=== PATIENT | female | born 1990 | race Caucasian/White ===

== ENCOUNTER 2016-10-03 11:50 | Emergency (ER) | payer BC, OTHER ==
[~2016-10-03] VITALS: Ht 162.6 cm; Wt 53.8 kg
[~2016-10-03 11:50] MED LIST: PRLSR20 PO
[2016-10-03 11:57] VITALS: TEMP 36.4; Ht 162.6 cm; Wt 53.8 kg
[2016-10-03] MEDS ORDERED: CLON0.5T3 PO (12:06)
[2016-10-03] MEDS ORDERED: ESCI1TAB6 PO (12:06)
[2016-10-03] MEDS ORDERED: SODIUM CHLORIDE 0.9% 1000ML 1,000 ML IV STA (12:27)
[2016-10-03 12:39] LABS: BASO % 0.5 %; BASO ABS # 0.02 K/uL (0-0.2); COMPLETE YES; EOS % 0.2 %; HEMATOCRIT 37.6 % (37-47); IG% 0.2 %; LYMPH % 39.7 %; LYMPH ABS # 1.72 K/uL (1.2-3.4); MEAN CELL VOLUME 88.1 fL (80-100); MEAN CORPUSCULAR HEMOGLOBIN 31.9 pg (25-34); MEAN CORPUSCULAR HGB CONC 36.2 g/dl (32-36); MEAN PLATELET VOLUME 9.3 fL (7.4-10.4); MONO % 6.2 %; NEUT % 53.2 %; PLATELET COUNT 250 K/uL (130-400); RED BLOOD COUNT 4.27 M/uL (4.2-5.4); WHITE BLOOD COUNT 4.33 K/uL (4.8-10.8)
[2016-10-03 12:53] LABS: BUN/CREATININE RATIO 16.1 (10-20); CALCIUM 9.3 mg/dl (8.5-10.1); CREATININE 0.66 mg/dl (0.60-1.20); MAGNESIUM 2.1 mg/dl (1.8-2.4); POTASSIUM 3.3 mmol/L (3.5-5.1)
[2016-10-03 13:02] LABS: URINE APPEARANCE CLEAR (CLEAR); URINE BILIRUBIN NEG (NEG); URINE COLOR DK YELLOW; URINE EPITHELIAL CELL AUTO >30 /lpf (0-5); URINE NITRITE NEG (NEG); URINE PH 7.5 (4.5-7.5); URINE SPECIFIC GRAVITY 1.024 (1.000-1.030); UROBILINOGEN NEG (NEG); ZZUR CULT IF INDIC CLEAN CATCH YES
[2016-10-03 13:03] LABS: MANUAL MICROSCOPIC REQUIRED? NO; REVIEW REQ? NO
--- NOTE | 2016-10-03 13:05 | DIAGNOSTIC IMAGING REPORT ---
CHEST ONE VIEW PORTABLE CLINICAL HISTORY: Palpitations. COMPARISON STUDY: Chest radiograph March 02, 2016. FINDINGS: Lung volumes are normal. Lungs are clear. There is no pneumothorax or pleural effusion. Cardiac size is normal. Mediastinal contours are normal. There is no evidence of pulmonary edema. IMPRESSION: No acute cardiopulmonary findings. Electronically signed by: Emery Juárez M.D. 10/03/2016 1:04 PM Dictated Date/Time: 10/03/2016 1:03 PM
[2016-10-03 13:11] LABS: PREG INTERNAL NEGATIVE QC NEG CLEAR BACKGROUND; PREG INTERNAL POSITIVE QC POS CONTROL LINE
--- NOTE | 2016-10-03 13:23 | EMERGENCY ROOM VISIT NOTE ---
History Report prepared by Trudy: Shana Hung Under the Supervision of: Dr. Audra Sun M.D. First contact with patient: 12:09 Chief Complaint: CARDIAC ASSESSMENT Stated Complaint: CHEST DISCOMFORT HX: CARDIAC Nursing Triage Summary: Triage note: Pt reports hx of high heart rate. pt reports she sees cardiolgist from [facility]. pt reports when she rolled over from right side to left side she noticed her heart rate increasing. pt reports "i have had chest discomfort that comes and goes." History of Present Illness The patient is a 26 year old female who presents to the Emergency Room with complaints of worsening palpitations that started two weeks ago. The palpitations were worse than normal last night and she could not fall back to sleep. She states that her heart races when she rolls over at night and then throughout the rest of the day her heart feels like it is beating hard. She experiences chest pain after the episodes of palpitations. When she has the palpitations, she also experiences nausea and shortness of breath. The patient denies syncope. She adds that she has also been experiencing a headache in the back of her head that she describes as heaviness. The headache also started two weeks ago. She bought a pulse monitor and noticed that her heart rate would go up into the 120s intermittently. The patient denies drinking coffee, energy drinks, or caffeine. The patient has been experiencing intermittent chest pain for the last 2-3 months. She had a stress test and ultrasound of her heart done 2-3 months ago and both were unremarkable. She was given a Holter monitor to wear but she thought that she didn't need to use it because her other tests were unremarkable so she sent it back. The patient is on Lexapro because they originally thought that her symptoms were a result of anxiety. She denies recent dose increases for that. The patient also denies any chance of along with any urinary symptoms. She does not feel that she is dehydrated and has not taken any aspirin for the pain. Source of History: patient Onset: two weeks ago Position: chest Quality: other (palpitations) Timing: worsening Associated Symptoms: + SOB, + chest pain, + headache, + nausea, No urinary symptoms Note: no syncope Review of Systems See HPI for pertinent positives & negatives. A total of 10 systems reviewed and were otherwise negative. Past Medical & Surgical Surgical Problems: (1) Hx of section Family History Cancer Social History Smoking Status: Never Smoker Alcohol Use: none Drug Use: none Marital Status: Housing Status: lives with family Occupation Status: employed Current/Historical Medications Scheduled Escitalopram Oxalate (Lexapro), 5 MG PO DAILY Miscellaneous Medications Clonazepam (Klonopin), 0.5 MG PO Allergies Coded Allergies: No Known Allergies (Unverified , 10/03/16) Physical Exam Vital Signs Date Time Temp Pulse Resp B/P Pulse Ox O2 Delivery O2 Flow Rate FiO2 10/03/16 15:13 59 16 109/66 99 10/03/16 14:28 71 16 96/61 93 10/03/16 12:39 88 120/68 99 81 116/71 87 104/79 10/03/16 12:07 68 10/03/16 11:57 36.4 74 18 113/73 100 Room Air Physical Exam Vital signs reviewed. General: Well-appearing female, in no significant distress. HEENT: No scleral icterus, PERRLA, neck supple. Atraumatic. Cardiovascular: Regular rate and rhythm, no extra sounds. Pulmonary: Clear to auscultation bilaterally, normal work of breathing. Abdomen: Soft, nontender, nondistended, positive bowel sounds. Musculoskeletal: Atraumatic, no peripheral edema. Neurologic: Patient awake alert and oriented x 3, full strength in all 4 extremities. Cranial nerves 2 through 12 grossly intact. Skin: Warm, dry, no rash Medical Decision & Procedures ER Provider Diagnostic Interpretation: X-ray results as stated below per interpretation by me and the radiologist: CHEST ONE VIEW PORTABLE IMPRESSION: No acute cardiopulmonary findings. Electronically signed by: Emery Juárez M.D. 10/03/2016 1:04 PM Dictated Date/Time: 10/03/2016 1:03 PM Laboratory Results 10/03/16 12:21 Red Blood Count 4.27, Mean Corpuscular Volume 88.1, Mean Corpuscular Hemoglobin 31.9, Mean Corpuscular Hemoglobin Concent 36.2, Mean Platelet Volume 9.3, Neutrophils (%) (Auto) 53.2, Lymphocytes (%) (Auto) 39.7, Monocytes (%) (Auto) 6.2, Eosinophils (%) (Auto) 0.2, Basophils (%) (Auto) 0.5, Neutrophils # (Auto) 2.30, Lymphocytes # (Auto) 1.72, Monocytes # (Auto) 0.27, Eosinophils # (Auto) 0.01, Basophils # (Auto) 0.02 10/03/16 12:21 Test 10/03/16 12:21 10/03/16 12:36 10/03/16 12:37 White Blood Count 4.33 K/uL (4.8-10.8) Red Blood Count 4.27 M/uL (4.2-5.4) Hemoglobin 13.6 g/dL (12.0-16.0) Hematocrit 37.6 % (37-47) Mean Corpuscular Volume 88.1 fL (80-100) Mean Corpuscular Hemoglobin 31.9 pg (25-34) Mean Corpuscular Hemoglobin Concent 36.2 g/dl (32-36) Platelet Count 250 K/uL (130-400) Mean Platelet Volume 9.3 fL (7.4-10.4) Neutrophils (%) (Auto) 53.2 % Lymphocytes (%) (Auto) 39.7 % Monocytes (%) (Auto) 6.2 % Eosinophils (%) (Auto) 0.2 % Basophils (%) (Auto) 0.5 % Neutrophils # (Auto) 2.30 K/uL (1.4-6.5) Lymphocytes # (Auto) 1.72 K/uL (1.2-3.4) Monocytes # (Auto) 0.27 K/uL (0.11-0.59) Eosinophils # (Auto) 0.01 K/uL (0-0.5) Basophils # (Auto) 0.02 K/uL (0-0.2) RDW Standard Deviation 37.1 fL (36.4-46.3) RDW Coefficient of Variation 11.6 % (11.5-14.5) Immature Granulocyte % (Auto) 0.2 % Immature Granulocyte # (Auto) 0.01 K/uL (0.00-0.02) Anion Gap 12.0 mmol/L (3-11) Est Creatinine Clear Calc Drug Dose 109.7 ml/min Estimated GFR () 141.3 Estimated GFR (Non- 121.9 BUN/Creatinine Ratio 16.1 (10-20) Calcium Level 9.3 mg/dl (8.5-10.1) Magnesium Level 2.1 mg/dl (1.8-2.4) Total Bilirubin 0.6 mg/dl (0.2-1) Direct Bilirubin 0.1 mg/dl (0-0.2) Aspartate Amino Transf (AST/SGOT) 21 U/L (15-37) Alanine Aminotransferase (ALT/SGPT) 21 U/L (12-78) Alkaline Phosphatase 54 U/L (45-117) Total Creatine Kinase 98 U/L (26-192) Creatine Kinase MB 1.0 ng/ml (0.5-3.6) Creatine Kinase MB Ratio 1.0 (0-3.0) Total Protein 7.5 gm/dl (6.4-8.2) Albumin 4.1 gm/dl (3.4-5.0) Human Chorionic Gonadotropin, Qual NEG (NEG) Bedside D-Dimer 118 ng/mlFEU (0-450) Bedside Troponin I 0.000 ng/ml (0-0.045) Urine Color DK YELLOW Urine Appearance CLEAR (CLEAR) Urine pH 7.5 (4.5-7.5) Urine Specific [place] 1.024 (1.000-1.030) Urine Protein NEG (NEG) Urine Glucose (UA) NEG (NEG) Urine Ketones 3+ (NEG) Urine Occult Blood NEG (NEG) Urine Nitrite NEG (NEG) Urine Bilirubin NEG (NEG) Urine Urobilinogen NEG (NEG) Urine Leukocyte Esterase TRACE (NEG) Urine WBC (Auto) 5-10 /hpf (0-5) Urine RBC (Auto) 0-4 /hpf (0-4) Urine Hyaline Casts (Auto) 5-10 /lpf (0-5) Urine Epithelial Cells (Auto) >30 /lpf (0-5) Urine Bacteria (Auto) 1+ (NEG) Laboratory results per my review. Medications Administered Medications (Trade) Dose Ordered Sig/Beto Route Start Time Stop Time Status Last Admin Dose Admin Sodium Chloride (Nss 1000ml) 1,000 ml @ 999 mls/hr Q1H1M STAT IV 10/03/16 12:27 10/03/16 13:27 DC 10/03/16 12:27 999 MLS/HR ECG Indication: palpitations Rate (beats per minute): 68 Rhythm: normal sinus Findings: no acute ischemic change, no ectopy ED Course 1224: Past medical records reviewed. The patient was evaluated in room C5. A complete history and physical examination was performed. 1227: Ordered Sodium Chloride 1000 ml @ 999 mls/hr IV 1443: Upon reevaluation, the patient appeared to have improvement of her symptoms. I discussed findings with her. She verbalized agreement of the treatment plan. She was discharged home. Medical Decision The patient is a 26 year old female who presents to the Emergency Room with complaints of worsening palpitations that started two weeks ago. Differentials include acute coronary syndrome, pulmonary embolus, aortic dissection, musculoskeletal pain, pneumonia, pleural effusion, pneumothorax This patient was evaluated and appeared to be in no significant distress. IV access was obtained and laboratory work was drawn. EKG reveals no ectopy, no acute ischemia. Patient was hydrated with 1 L of normal saline solution. Urinalysis reveals 3+ ketones, no evidence of infection. Patient's laboratory work reveals a normal d-dimer and troponin. She was informed of the findings. We did discuss the possibility of the effects of dieting. The patient states she has "not been eating much." She was encouraged to add some carbohydrate to her diet and stay well-hydrated. A Holter monitor was ordered. The patient was discharged to cardiopulmonary lab for set up. 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 She will return to the ER for worsening of symptoms or any medical concerns. Impression Primary Impression: Heart palpitations Scribe Attestation The scribe's documentation has been prepared under my direction and personally reviewed by me in its entirety. I confirm that the note above accurately reflects all work, treatment, procedures, and medical decision making performed by me. Departure Information Dispostion Home / Self-Care Referrals No Doctor, Assigned (PCP) Forms IMPORTANT VISIT INFORMATION Patient Instructions My [facility] Additional Instructions Diagnosis: Heart palpitations Drink plenty of clear fluids. Increase the carbohydrate in your diet. Follow-up with your doctor this week for reevaluation. Go directly to cardiopulmonary lab for a Holter monitor and directions on use. Follow-up with your wire mesh gate assembler within the next 1-2 weeks for reevaluation and interpretation of the Holter monitor. Return to the ER for worsening of symptoms or any medical concerns.
[2016-10-03 15:13] VITALS: BP 109/66; PULSE 59; O2SAT 99
== END 2016-10-03 15:14 | disposition home or self-care (01) ==
LOC: C.EDB 11:55 → C.EDC 15:14
DX: R00.2 Palpitations (principal)

== ENCOUNTER → 2016-11-12 | Outpatient (CLI) | payer OTHER ==
[~2016-11-12] MED LIST changes: +CLON0.5T3 PO; +ESCI1TAB6 PO; -PRLSR20 PO
[2016-11-12 11:51] LABS: PROLACTIN 10.24 ng/mL
== END | disposition home or self-care (01) ==
LOC: C.LAB1850 10:25
PROVIDERS: ATTEND Obstetrics & Gynecology
DX: N92.6 Irregular menstruation, unspecified (principal)

== ENCOUNTER → 2016-11-12 | Outpatient (CLI) | payer OTHER | END | disposition home or self-care (01) | LOC: C.LABSPEC 13:18 | PROVIDERS: ATTEND Obstetrics & Gynecology | DX: N89.8 Other specified noninflammatory disorders of vagina (principal) ==

== ENCOUNTER 2017-06-22 23:34 | Emergency (ER) | payer OTHER ==
[~2017-06-22] VITALS: Ht 165.1 cm; Wt 62.7 kg
[2017-06-22 23:41] VITALS: TEMP 36.5; Ht 165.1 cm; Wt 62.7 kg
[2017-06-23] MEDS ORDERED: KETOROLAC TROMETHAMINE 30 MG/ML VIAL IV STA (00:01)
[2017-06-23 00:15] LABS: BASO % 0.3 %; BASO ABS # 0.02 K/uL (0-0.2); COMPLETE YES; EOS % 1.1 %; HEMATOCRIT 43.6 % (37-47); IG% 0.3 %; LYMPH % 41.4 %; MEAN CELL VOLUME 91.6 fL (80-100); MEAN CORPUSCULAR HGB CONC 32.8 g/dl (32-36); MEAN PLATELET VOLUME 9.2 fL (7.4-10.4); MONO % 8.1 %; NEUT % 48.8 %; PLATELET COUNT 303 K/uL (130-400); RED BLOOD COUNT 4.76 M/uL (4.2-5.4); WHITE BLOOD COUNT 7.25 K/uL (4.8-10.8)
[2017-06-23 00:39] LABS: BUN/CREATININE RATIO 12.4 (10-20); CALCIUM 9.5 mg/dl (8.5-10.1); CREATININE 0.71 mg/dl (0.60-1.20)
[2017-06-23 00:41] LABS: PREG INTERNAL NEGATIVE QC NEG CLEAR BACKGROUND; PREG INTERNAL POSITIVE QC POS CONTROL LINE
[2017-06-23 01:16] VITALS: BP 113/63; PULSE 66; O2SAT 98
--- NOTE | 2017-06-23 01:29 | EMERGENCY ROOM VISIT NOTE ---
History First contact with patient: 23:46 Chief Complaint: HEAD PAIN Stated Complaint: HEAD PRESSURE/PAIN History of Present Illness The patient is a 27 year old female who presents to the Emergency Room with complaints of headache 1 week. The patient states that she has had a headache on the right side of her head for the past one week. She states the pain has been constant. She states it feels like a pressure/knot. She reports this feels better when she lies on the right side of her head. The pain came on gradually after waking up one morning one week ago. She reports associated nausea, but no other associated symptoms. She rates the discomfort a 7/10. She denies vomiting, blurred vision, slurred speech, confusion, numbness or weakness. She denies any history of migraine or other headache disorders. Review of Systems A complete 10 point review of systems was reviewed with the patient with pertinent positives and negatives as per history of present illness. All else were negative. Past Medical/Surgical History Surgical Problems: (1) Hx of section Family History Cancer Social History Smoking Status: Never Smoker Alcohol Use: none Drug Use: none Marital Status: Housing Status: lives with family Occupation Status: employed Current/Historical Medications No Active Prescriptions or Reported Meds Physical Exam Vital Signs Date Time Temp Pulse Resp B/P (MAP) Pulse Ox O2 Delivery O2 Flow Rate FiO2 06/23/17 01:16 66 16 113/63 98 Room Air 06/22/17 23:41 36.5 77 18 119/73 98 Physical Exam VITALS: Vitals are noted on the nurse's note and reviewed by myself. Vital signs stable. GENERAL: This is a 27-year-old female, in no acute distress, nondiaphoretic, well-developed well-nourished. SKIN: The skin was without rashes. HEAD: Normocephalic atraumatic. EARS: External auditory canals clear, tympanic membranes pearly lópez without erythema or effusion bilaterally. EYES: Pupils equal round and reactive to light and accommodation. Conjunctivae without injection, sclerae without icterus. Extraocular movements intact. MOUTH: Mucous membranes moist. Tonsils are not enlarged. Pharynx without erythema or exudate. NECK: Supple without nuchal rigidity. No lymphadenopathy. HEART: Regular rate and rhythm without murmurs gallops or rubs. LUNGS: Clear to auscultation bilaterally without wheezes, rales or rhonchi. MUSCULOSKELETAL: Full range of motion. Strength 5/5 throughout. NEURO: Patient was alert and oriented to person place and time. Normal sensation to light and sharp touch. No focal neurological deficits. Medical Decision & Procedures ER Provider Diagnostic Interpretation: CT HEAD: No acute intracranial abnormality identified. Posterior fossa cyst incidentally noted. Radiologist: Jose L Miranda MD Laboratory Results 06/23/17 00:05 Red Blood Count 4.76, Mean Corpuscular Volume 91.6, Mean Corpuscular Hemoglobin 30.0, Mean Corpuscular Hemoglobin Concent 32.8, Mean Platelet Volume 9.2, Neutrophils (%) (Auto) 48.8, Lymphocytes (%) (Auto) 41.4, Monocytes (%) (Auto) 8.1, Eosinophils (%) (Auto) 1.1, Basophils (%) (Auto) 0.3, Neutrophils # (Auto) 3.54, Lymphocytes # (Auto) 3.00, Monocytes # (Auto) 0.59, Eosinophils # (Auto) 0.08, Basophils # (Auto) 0.02 06/23/17 00:05 Test 06/23/17 00:05 White Blood Count 7.25 K/uL (4.8-10.8) Red Blood Count 4.76 M/uL (4.2-5.4) Hemoglobin 14.3 g/dL (12.0-16.0) Hematocrit 43.6 % (37-47) Mean Corpuscular Volume 91.6 fL (80-100) Mean Corpuscular Hemoglobin 30.0 pg (25-34) Mean Corpuscular Hemoglobin Concent 32.8 g/dl (32-36) Platelet Count 303 K/uL (130-400) Mean Platelet Volume 9.2 fL (7.4-10.4) Neutrophils (%) (Auto) 48.8 % Lymphocytes (%) (Auto) 41.4 % Monocytes (%) (Auto) 8.1 % Eosinophils (%) (Auto) 1.1 % Basophils (%) (Auto) 0.3 % Neutrophils # (Auto) 3.54 K/uL (1.4-6.5) Lymphocytes # (Auto) 3.00 K/uL (1.2-3.4) Monocytes # (Auto) 0.59 K/uL (0.11-0.59) Eosinophils # (Auto) 0.08 K/uL (0-0.5) Basophils # (Auto) 0.02 K/uL (0-0.2) RDW Standard Deviation 39.3 fL (36.4-46.3) RDW Coefficient of Variation 11.7 % (11.5-14.5) Immature Granulocyte % (Auto) 0.3 % Immature Granulocyte # (Auto) 0.02 K/uL (0.00-0.02) Anion Gap 8.0 mmol/L (3-11) Est Creatinine Clear Calc Drug Dose 107.1 ml/min Estimated GFR () 135.3 Estimated GFR (Non- 116.7 BUN/Creatinine Ratio 12.4 (10-20) Calcium Level 9.5 mg/dl (8.5-10.1) Human Chorionic Gonadotropin, Qual NEG (NEG) Chemistry Specimen Hemolysis Medical Decision The differential diagnosis includes acute intracranial bleed, meningitis, encephalitis, mass or mass effect, sinusitis, infection, tumor, headache, temporal arteritis and carbon monoxide exposure, and migraine. The patient is a 27-year-old female who presents today complaining of a right- sided headache which has been present for one week. No concerning abnormalities on exam. No neurological deficits. CT of the head was performed and showed no acute findings. Labs were unremarkable. Patient's symptoms seem to be secondary to a tension headache and she does admit to increased stress recently as well as a significant amount of anxiety regarding this headache. Patient was reassured and instructed to use [id number] medications for treatment. She was advised to follow-up with her primary care provider this week for further evaluation. Based on the patient's presentation and work up, I feel the patient is stable for outpatient treatment. The patient was educated to return to the emergency department for any worsening of their current condition or new/concerning symptoms. She will follow up with her PCP. Medication Reconcilliation Current Medication List: was personally reviewed by me Blood Pressure Screening Patient's blood pressure: Normal blood pressure Impression Primary Impression: Right-sided headache Departure Information Dispostion Home / Self-Care Condition GOOD Prescriptions No Active Prescriptions or Reported Meds Referrals Jenna Cho D.O. (PCP) Patient Instructions My [facility] Additional Instructions You have been treated in the Emergency Department for a Headache. For pain control, you can use the following [id number] medicines (if >12 yo): - Regular strength (325mg/tab) Tylenol (acetaminophen) 2 tabs every 4-6 hours as needed. Do not exceed 12 tablets in a 24 hour period. Avoid taking more than 4 grams (4000 mg) of Tylenol per day. This includes any other sources of acetaminophen you may take on a regular basis. - Regular strength (200 mg/tab) Advil (ibuprofen) 1-2 tabs every 4-6 hours as needed. Do not exceed a dose of 3200 mg per day. You should relax in a quiet, dark place for the rest of the day. Avoid any possible triggers including: cigarette smoke, caffeine, nicotine, chocolate, wine, beer, loud noises or music, or bright lights. You should schedule a follow-up appointment in 2-3 days with your Primary Care Provider or established Neurologist for further evaluation and treatment of your Headache. Return to the Emergency Department if your current symptoms worsen despite treatment course outlined above, or if you develop any of the following symptoms : intractable pain despite aforementioned treatment course, visual disturbances , loss of vision, unilateral weakness or facial drooping, slurring of speech, loss of coordination, or loss of consciousness.
--- NOTE | 2017-06-23 07:14 | DIAGNOSTIC IMAGING REPORT ---
HEAD CT NONCONTRAST CT DOSE: 614.27 mGy.cm HISTORY: right sided headache TECHNIQUE: Multiaxial CT images of the head were performed without the use of intravenous contrast. Automated exposure control was utilized for this study. A dose lowering technique was utilized adhering to the principles of ALARA. Comparison: None. Findings: The paranasal sinuses and mastoid air cells are clear. The calvarium and skull base are intact. The ventricles and sulci are within normal limits. There is no mass, hematoma, midline shift, or acute infarct. Prominence of the left posterior extra-axial space within the posterior fossa measuring up to 1.7 cm. This likely represents an arachnoid cyst. Impression: No acute intracranial abnormality. Electronically signed by: Kris Taveras M.D. 06/23/2017 7:12 AM Dictated Date/Time: 06/23/2017 7:11 AM
== END 2017-06-23 01:32 | disposition home or self-care (01) ==
LOC: C.EDB 23:34
DX: R51 Headache (principal); Z80.9 Family history of malignant neoplasm, unspecified; F41.9 Anxiety disorder, unspecified

== ENCOUNTER 2017-12-10 16:34 | Emergency (ER) | payer OTHER ==
[~2017-12-10] VITALS: Ht 162.6 cm; Wt 62.2 kg
[2017-12-10 16:40] VITALS: TEMP 36.4; Ht 162.6 cm; Wt 62.2 kg
--- NOTE | 2017-12-10 18:04 | DIAGNOSTIC IMAGING REPORT ---
HEAD WITHOUT CONTRAST (CT) CT DOSE: 614.27 mGy.cm HISTORY: Mental status change L lower jaw and neck numbness; ? CVA TECHNIQUE: Multiaxial CT images of the head were performed without the use of intravenous contrast. A dose lowering technique was utilized adhering to the principles of ALARA. Comparison: 06/23/2017 Findings: The paranasal sinuses and mastoid air cells are clear. The calvarium and skull base are intact. The ventricles and sulci are within normal limits. There is no mass, hematoma, midline shift, or acute infarct. Impression: No acute intracranial abnormality. The above report was generated using voice recognition software. It may contain grammatical, syntax or spelling errors. Electronically signed by: Herberth Neumann M.D. 12/10/2017 6:03 PM Dictated Date/Time: 12/10/2017 6:02 PM
[2017-12-10] MEDS ORDERED: PRED20TA PO (18:45)
[2017-12-10 18:58] VITALS: BP 106/63; PULSE 68; O2SAT 98
--- NOTE | 2017-12-11 22:13 | EMERGENCY ROOM VISIT NOTE ---
ED Visit Note First contact with patient: 17:00 Chief Complaint: Left-sided face and neck numbness. History of Present Illness: Ms. Puri is a 27-year-old white female who ambulates into the ED accompanied by her complaining of a numbness sensation over the left lateral joint line and the lateral aspect of the left side of the neck. Patient reports she has been feeling well over the last 2 days and then acutely at 11:00 today, 5.5 hours ago, she developed numbness over the lateral aspect of the lower jaw, the lower lip, the lateral aspect of the tongue and the lateral aspect of the neck. Since that time her symptoms have been constant. She has not identified any aggravating or alleviating factors related these symptoms. She did not take any medications for these symptoms prior to arrival at the hospital. Associated with these symptoms she reports she has a metallic on her tongue. She has been able to eat and drink after the onset of her symptoms. She denies any previous similar episodes, fevers, chills, sweats, skin eruptions , skin color changes, headaches, dizziness, lightheadedness, hearing changes, visual changes, difficulty speaking, difficulty swallowing, recent dental trauma , upper respiratory tract symptoms, neck/back pain, decreased appetite, nausea/ vomiting, extremity weakness/numbness/tingling. Review of Systems: As noted above in history of present illness. 8 body systems were reviewed and found to be negative as noted above. Past Medical History: Status post section. Current Medications: Patient denies. Allergies to Medications: Patient denies. Social History: Patient is currently employed; she lives with her and feels safe in her home environment; she denies tobacco and alcohol use. Physical Examination: Vital Signs: Date Time Temp Pulse Resp B/P (MAP) Pulse Ox O2 Delivery O2 Flow Rate FiO2 12/10/17 18:58 68 18 106/63 98 Room Air Manual 12/10/17 17:57 95 13 122/78 100 Room Air 12/10/17 16:40 36.4 94 16 133/82 98 Room Air GENERAL: 27-year-old female in mild distress due to symptoms, nontoxic-appearing , afebrile and hemodynamically stable. Patient is anxious. NEUROLOGICAL: Awake, alert and oriented to person, place and time. Answering questions appropriately and following commands. Normal gait. Good hand eye coordination. PERRLA. EOMI intact without nystagmus. No facial droop. Able to wrinkle forehead muscles. Able to tightly close eyelids. No tongue deviation. Decreased sensation to the left lateral aspect of the tongue, upper lip and lower portion of the body of the mandible and lateral neck. Able to swallow without difficulty. Normal/clear voice. No muscle weakness throughout the face. SKIN: Warm, dry and pink. No soft tissue eruptions or trauma noted. HEENT: Atraumatic and normocephalic. No facial tenderness or swelling. There was mild erythema over the left side of the face during my initial evaluation that subsequently resolved. Sclera white and conjunctiva pink without drainage. No drainage from naris. Oral cavity moist and pink. Airway is patent. No intraoral trauma or signs of infection. Pharynx is nonerythematous or edematous. No lymphadenopathy. Trachea midline. No jugular venous distention. No JVD. No carotid bruits. BACK: No tenderness over the bony cervical and thoracic spine. Full range of motion of the cervical spine. THORAX: Lungs sounds are clear to auscultation and equal bilaterally with symmetrical chest wall. ED Course: Patient is assessed as noted above. Patient's medication list was reviewed. Head CT: Was reviewed by myself and read by the radiologist showing no acute intracranial abnormalities. Patient's case was reviewed with Dr. Bourne; we agreed on diagnostic approach, treatment, disposition and plan. Patient was educated about today's findings and instructed on her treatment plan ; she verbalized understanding and agreement with this plan. Clinical Impression: Left-sided facial and neck numbness. Decision-Making: Initially my differential diagnosis I considered CVA, TIA, Murray 's palsy and other causes. Disposition: Patient discharged home in stable condition; prior to departure she was reassessed and subjectively reported she was feeling the same. Plan: Patient was prescribed prednisone 40 mg once a day for the next 5 days. Patient was encouraged to continue her other medications. Patient was encouraged to follow-up with her PCP for recheck in 2-4 days. Patient was encouraged to return the ED for worsening symptoms, left-sided facial weakness or any new/concerning symptoms.
== END 2017-12-10 19:01 | disposition home or self-care (01) ==
LOC: C.EDB 16:35 → C.EDD 19:01
DX: R20.0 Anesthesia of skin (principal)

== ENCOUNTER 2019-09-23 10:23 | Observation (INO) ==
[2019-09-23] MEDS ORDERED: ACETAMINOPHEN 325 MG TAB PO PRN (11:15)
[2019-09-23 11:50] LABS: Appearance Urine Clear (Clear); Bacteria Urine Automated 1+ (Negative); Bilirubin Urine Negative (Negative); Blood Urine Negative (Negative); Color Urine Yellow; Epithelial Cell Urine Auto >30 /lpf (0-5); Glucose Urine UA Negative (Negative); Ketones Urine 1+ (Negative); Leukocyte Esterase Urine 1+ (Negative); Nitrite Urine Negative (Negative); RBC Urine Automated 0-4 /hpf (0-4); Specific Gravity Urine 1.018 (1.000-1.030); Urobilinogen Urine Negative (Negative); pH Urine 7.5 (4.5-7.5)
[2019-09-23 11:52] LABS: Protein Urine Negative (Negative); Sulfosalicylic Acid Urine Negative (Negative)
[2019-09-23] MEDS ORDERED: LACTATED RINGER'S 2,000 ML IV ONE (12:21)
--- NOTE | 2019-09-23 13:42 | History & Physical Report ---
Date of Service September 23, 2019 Assessment & Plan (1) Supervision of normal intrauterine in multigravida: [id number] at 34.0 weeks GA. Patient presents for regular contractions. 1. Fetus:Cat 1/ Reactive 2. Labor: Regular contractions without cervical change at present. Recommended BMZ with discussion of risks and benefits including risk of respiratory morbidity and NICU admission by not receiving BMZ. Patient declining BMZ at this time. Will continue to monitor on L&D 3. Vitals: WNL 4. GBS: Unknown (2) Need for rhogam due to Rh negative mother: (3) contractions: History of Present Illness Primary Care Provider: Jenna Cho, [id number] at 34.0 weeks GA. Patient presents for regular contractions. Reports that ctx started after an episode of diarrhea around 5am today. Have not changed significantly since onset and occurring q3-6 minutes. Patient also reporting GI upset. nausea and vomited while in triage with PO intake. Denying and VB, LOF. Good FM. complicated by prior LTCS desiring /TOLAC. Patient has prior 37 week delivery for labor. Allergies Allergy/AdvReac Type Severity Reaction Status Date / Time No Known Allergies Allergy Verified 09/19/19 11:08 Home Medications Home Medications Medication Instructions Recorded Confirmed Type PNV cmb#95-ferrous fumarate-FA 0 tab PO DAILY 06/21/19 09/23/19 History [ Multivitamins] ferrous sulfate [Iron (ferrous 325 mg PO DAILY 09/23/19 09/23/19 History sulfate)] Patient History Medical History (Updated 09/23/19 @ 13:34 by Prakash Ni MD) screening for malformation using ultrasonics (Resolved) Endometriosis Generalized weakness (Acute) Need for rhogam due to Rh negative mother No pertinent past medical history Ovarian cyst Supervision of normal intrauterine in multigravida Syncope (Acute) Surgical History History of delivery, antepartum Hx of section (Resolved) Social History Preferred Language: [place]i Communication Ability: Effective Respite Coordinator Required: No Beliefs That Will Affect Care: None marital status: Current Living Situation: Spouse Other Information That Helps Us Care for You: No Feels Safe at Home: Yes Safety Concerns: Feels Safe At This Time Smoking Status: Never smoker Hx Alcohol Use: No Hx Substance Use: No Physical Exam Gastrointestinal (Abdomen): Inspection/Auscultation: abdomen normal to inspection; abdomen not distended and no abdominal edema Percussion/Palpation: abdomen soft; abdomen nontender, no guarding and abdomen not rigid Genitourinary: OB Exam Abdomen: + vertex OB Exam Monitor Tracing: + external FHT monitor used, + external uterine monitor used, + category I and + normal FHT variability; no early decelerations present, no late decelerations present and no variable decelerations SVE: 1/T/H > 1/T/H > 1/T/H Results & Data Vital Signs (Past 12 Hours) Vital Signs Temp Pulse Resp BP 09/23/19 12:50 36.7 C 109 H 20 122/64 09/23/19 10:41 36.7 C 113 H 20 133/73 09/23/19 10:33 113 H 133/73 09/23/19 10:31 36.7 C 20
[2019-09-23] MEDS: LACTATED RINGER'S 1,000 ML IV SCH ×2 (15:36→23:11)
[2019-09-24] MEDS: LACTATED RINGER'S 1,000 ML IV SCH (06:54)
--- NOTE | 2019-09-24 08:28 | Obstetrical Progress Note ---
Date of Service September 24, 2019 Assessment & Plan (1) Supervision of normal intrauterine in multigravida: [id number] at 34.0 weeks GA. Patient presents for regular contractions. Contractions improved as noted per HPI. No cervical change. Patient has had S/S of viral gastritis which is likely the underlining cause the contractions and maternal tachycardia 1. Fetus:Cat 1/ Reactive 2. Labor: Regular contractions without cervical change at admission. rare irregular contractions overnight. No cervical change noted. Recommended BMZ with discussion of risks and benefits including risk of respiratory morbidity and NICU admission by not receiving BMZ. Patient declining BMZ . Stable for discharge pending normal LE duplex 3. Vitals: WNL 4. GBS: Unknown 5. LE pain: LE duplex scan ordered (2) Need for rhogam due to Rh negative mother: (3) contractions: Subjective 29yo at 34.1 weeks. Patient presented with regular contractions. Patient have been monitored since 11am yesterday and has noted no cervical change. Contractions have become mild, irregular and infrequent since yesterday evening. She is denying LOF, VB. Good FM. Patient is reporting LE discomfort and tingling. Reporting local reproducible nonpleuritic tenderness at the rib edge but denying and chest tightness, SOB or other chest discomfort. Otherwise doing well today. PAtient had EKG yesterday for maternal tachycardia that showed sinus tach. Tachycardia improved this am Physical Exam Gastrointestinal (Abdomen): Inspection/Auscultation: abdomen normal to inspection; abdomen not distended and no abdominal edema Percussion/Palpation: abdomen soft; abdomen nontender, no guarding and abdomen not rigid Genitourinary: OB Exam Abdomen: + vertex Manual OB Exam: + cervical dilation 1 cm, + cervical effacement (thick) and + station high OB Exam Monitor Tracing: + external FHT monitor used, + external uterine monitor used, + category I and + normal FHT variability; no early decelerations present, no late decelerations present and no variable decelerations Reactive NST Results & Data Vital Signs (Past 12 Hours) Vital Signs Temp Pulse Resp BP Pulse Ox 09/24/19 08:12 106 H 97 09/24/19 08:07 106 H 97 09/24/19 08:02 99 H 96 09/24/19 07:57 102 H 98 09/24/19 07:52 106 H 97 09/24/19 07:47 116 H 98 09/24/19 07:42 132 H 98 09/24/19 07:37 115 H 97 09/24/19 07:32 116 H 96 09/24/19 07:23 113 H 96 09/24/19 07:18 103 H 96 09/24/19 07:13 99 H 97 09/24/19 07:08 113 H 97 09/24/19 07:03 110 H 97 09/24/19 06:58 117 H 98 09/24/19 06:56 36.6 C 121 H 18 103/54 L 09/24/19 06:53 124 H 94 09/24/19 06:52 113 H 94 09/24/19 06:48 109 H 95 09/24/19 06:47 108 H 94 09/24/19 06:43 111 H 95 09/24/19 06:40 109 H 94 09/24/19 06:38 109 H 94 09/24/19 06:35 106 H 94 09/24/19 06:33 108 H 95 09/24/19 06:28 108 H 95 09/24/19 06:25 116 H 94 09/24/19 06:23 109 H 95 09/24/19 06:18 112 H 95 09/24/19 06:13 113 H 95 09/24/19 06:12 126 H 93 09/24/19 06:08 112 H 95 09/24/19 06:05 110 H 94 09/24/19 06:03 112 H 96 09/24/19 05:58 107 H 92 09/24/19 05:53 108 H 92 09/24/19 05:48 110 H 94 09/24/19 05:43 107 H 94 09/24/19 05:38 113 H 94 09/24/19 05:33 116 H 96 09/24/19 05:28 116 H 97 09/24/19 05:24 114 H 94 09/24/19 05:23 125 H 97 09/24/19 05:19 130 H 94 09/24/19 05:18 128 H 96 09/24/19 04:56 122 H 96 09/24/19 04:51 119 H 96 09/24/19 04:46 129 H 96 09/24/19 04:41 122 H 97 09/24/19 04:36 130 H 96 09/24/19 04:35 36.9 C 18 09/24/19 04:34 136 H 132/69 09/24/19 04:31 126 H 97 09/24/19 04:26 131 H 96 09/24/19 04:21 131 H 96 09/24/19 04:17 131 H 94 09/24/19 04:16 140 H 94 09/24/19 04:08 114 H 94 09/24/19 04:07 111 H 94 09/24/19 04:03 111 H 95 09/24/19 04:02 106 H 94 09/24/19 03:58 110 H 95 09/24/19 03:56 115 H 94 09/24/19 03:53 109 H 95 09/24/19 03:51 109 H 94 09/24/19 03:48 113 H 95 09/24/19 03:45 113 H 94 09/24/19 03:43 104 H 95 09/24/19 03:38 110 H 95 09/24/19 03:37 111 H 94 09/24/19 03:32 128 H 97 09/24/19 03:27 116 H 96 09/24/19 03:22 116 H 97 09/24/19 03:17 116 H 97 09/24/19 03:12 121 H 98 09/24/19 03:11 36.3 C L 18 09/24/19 03:09 117 H 130/67 09/24/19 03:07 129 H 96 09/24/19 03:00 118 H 95 09/24/19 02:55 115 H 96 09/24/19 02:50 110 H 94 09/24/19 02:47 112 H 94 09/24/19 02:45 109 H 94 09/24/19 02:40 111 H 93 09/24/19 02:39 116 H 93 09/24/19 02:35 107 H 96 09/24/19 02:30 106 H 95 09/24/19 02:28 106 H 94 09/24/19 02:25 110 H 94 09/24/19 02:21 114 H 91 09/24/19 02:20 109 H 95 09/24/19 02:15 108 H 95 09/24/19 02:13 116 H 91 09/24/19 02:10 113 H 96 09/24/19 02:07 106 H 94 09/24/19 02:05 112 H 96 09/24/19 02:02 108 H 94 09/24/19 02:00 104 H 95 09/24/19 01:55 102 H 94 09/24/19 01:50 104 H 95 09/24/19 01:46 104 H 94 09/24/19 01:45 107 H 94 09/24/19 01:41 128 H 94 09/24/19 01:40 105 H 93 09/24/19 01:35 104 H 93 09/24/19 01:30 102 H 16 93 09/24/19 01:28 100 H 94 09/24/19 01:25 101 H 93 09/24/19 01:20 100 H 93 09/24/19 01:15 100 H 93 09/24/19 01:10 97 H 94 09/24/19 01:08 104 H 94 09/24/19 01:05 114 H 97 09/24/19 01:02 99 H 94 09/24/19 01:00 96 H 95 09/24/19 00:56 95 H 94 09/24/19 00:55 96 H 95 09/24/19 00:51 114 H 91 09/24/19 00:50 110 H 96 09/24/19 00:45 106 H 97 09/24/19 00:40 115 H 96 09/24/19 00:29 113 H 93 09/24/19 00:27 102 H 94 09/24/19 00:22 105 H 93 09/24/19 00:17 110 H 94 09/24/19 00:12 102 H 93 09/24/19 00:10 103 H 94 09/24/19 00:07 101 H 93 09/24/19 00:02 97 H 94 09/23/19 23:57 100 H 93 09/23/19 23:52 97 H 94 09/23/19 23:47 94 H 93 09/23/19 23:42 98 H 93 09/23/19 23:37 92 H 94 09/23/19 23:33 99 H 94 09/23/19 23:32 113 H 96 09/23/19 23:28 101 H 94 09/23/19 23:27 101 H 95 09/23/19 23:22 101 H 95 09/23/19 23:19 36.6 C 100 H 18 94 09/23/19 23:17 106 H 94 09/23/19 23:14 109 H 94 09/23/19 23:12 108 H 96 09/23/19 23:10 113 H 93/55 L 09/23/19 23:09 108 H 90 09/23/19 23:07 115 H 96 09/23/19 23:02 119 H 95 09/23/19 22:53 113 H 95 09/23/19 22:51 104 H 93 09/23/19 22:48 111 H 97 09/23/19 22:43 126 H 96 09/23/19 22:42 109 H 94 09/23/19 22:38 107 H 96 09/23/19 22:33 108 H 96 09/23/19 22:28 107 H 96 09/23/19 22:23 114 H 97 09/23/19 22:18 117 H 96 09/23/19 22:13 118 H 96 09/23/19 22:08 112 H 96 09/23/19 22:03 123 H 95 09/23/19 22:00 112 H 94 09/23/19 21:58 126 H 95 09/23/19 21:47 149 H 94 09/23/19 21:42 124 H 95 09/23/19 21:37 140 H 97 09/23/19 21:32 140 H 96 09/23/19 21:27 130 H 97 09/23/19 21:23 125 H 114/59 L 09/23/19 21:18 137 H 97 09/23/19 21:15 126 H 94 09/23/19 21:13 140 H 96 09/23/19 21:10 123 H 94 09/23/19 21:08 127 H 95 09/23/19 21:03 128 H 97 09/23/19 20:58 127 H 96 09/23/19 20:53 137 H 97 09/23/19 20:45 37.3 C 18 09/23/19 20:37 120 H 97 09/23/19 20:32 113 H 96 PG Care Time/CCT Total # of Minutes Spent Total Time Spent with Patient: Total time spent is greater than 50% in coordination of care (as documented) at patient's floor/unit and/or counseling patient:
--- NOTE | 2019-09-24 10:42 | Ultrasound Report ---
US venous doppler LE BI HISTORY: Pain. Edema. Calf pain COMPARISON STUDY: None. FINDINGS: There is normal compressibility, flow, and augmentation within the bilateral lower extremit y deep venous systems. IMPRESSION: No DVT within the right or left lower extremity. ACT 112: Negative or not required by law. The above report was generated using voice recognition software. It may contain grammatical, syntax or spelling errors. Electronically signed by: Herberth Neumann M.D. 09/24/2019 10:40 AM
--- NOTE | 2019-09-26 09:42 | Discharge Summary ---
HOSPITAL COURSE: The patient is a 29-year-old G2, P1-0-0-1 admitted at 34 weeks gestational age for regular contractions. At initial evaluation, the patient was noted to be becka every 2-3 minutes which she reported as painful. The patient was evaluated for several hours and noted to have continued regular contractions every 2-3 minutes without cervical change; however, due to the regular contractions which she was experiencing, I recommend the patient stay for admission for observation which she was agreeable to. The patient was evaluated on several occasions and noted no cervical change. She was given IV fluids as she was not tolerating p.o. secondary to nausea with vomiting and the patient is also experiencing diarrhea. On the first day of observation, the patient was noted to have a slow spacing in the contractions and then have spacing out to only rare irregular contractions overnight. The patient was reevaluated the following morning and noted to still have no cervical change. She was offered steroids at the time of admission for observation secondary to the regular contractions which she was experiencing. The patient declined steroids despite being counseled on 3 occasions with the recommendation that she have them secondary to the contractions. The patient was stable for discharge on the and was discharged in stable condition. She was reporting some calf tenderness prior to discharge and underwent a duplex lower extremity ultrasound, which was unremarkable. The patient was given both written and verbal discharge instructions and stressed that she should come back if regular contractions were to recur. The patient was agreeable to plan. Otherwise, the patient will follow up in clinic.
== END 2019-09-24 11:15 | disposition home or self-care (01) ==
LOC: OPB 10:23 → 4S1 10:23

== ENCOUNTER 2019-10-10 18:39 | Observation (INO) ==
[2019-10-10] MEDS ORDERED: BETAMETH SOD PHOS/ACETATE IA 6 MG/ML IM STA (22:19)
--- NOTE | 2019-10-10 22:24 | History & Physical Report ---
Date of Service October 10, 2019 Assessment & Plan (1) contractions: Cervix exam unchanged over 2 exams, 2 hours apart. However, I am concerned that she is still becka, lives over an hour away from the hospital, and has a prior hysterotomy scar on her uterus. I recommended to her that we keep her overnight for monitoring. If these contractions increase, will need to recheck cervix. Otherwise, plan to check again in the morning and determine whether she needs to stay at that point. I collected GBS swab tonight, will obtain CBC/blood bank hold. IV fluids overnight. I discussed steroids with patient - reviewed ACOG recommendations to give steroids up until 37w to improve lung maturity. Answered questions, discussed that I recommend that she get steroids. She and FOB will think about this. If contractions increase, will need to start PCN for GBS unknown prophylaxis. History of Present Illness Chief Complaint: contractions Primary Care Provider: Jenna Cho, DO 29yo @ 36 11/25 presented to L&D with contractions - was feeling tightening in her abdomen every so often, and feeling more regular pains in her low back. + movement. No vaginal bleeding or leaking of fluid. complicated by h/o low transverse section - desires . Rh negative. She spent the night at L&D a few weeks ago for a similar scenario. She had declined steroids for lung maturity at that time, concerned that it may cause problems for the baby. 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 Beliefs That Will Affect Care: None marital status: Current Living Situation: Spouse Other Information That Helps Us Care for You: No Feels Safe at Home: Yes Safety Concerns: Feels Safe At This Time Smoking Status: Never smoker Hx Alcohol Use: No Hx Substance Use: No Review of Systems All systems reviewed & are unremarkable except as noted in HPI & below Physical Exam Constitutional: WD/WN, vitals as above Respiratory: normal respiratory effort, lungs clear to auscultation no respiratory distress Cardiovascular: Rate/Rhythm: regular rate and regular rhythm Gastrointestinal (Abdomen): Inspection/Auscultation: abdomen normal to inspection Percussion/Palpation: abdomen soft; abdomen nontender Gravid. No s/s chorio or abruption. Skin: no rashes, warm and dry Psychiatric: A+Ox3, euthymic affect Results & Data Vital Signs (Past 12 Hours) Vital Signs Temp Pulse Resp BP 10/10/19 19:06 36.7 C 18 10/10/19 18:50 105 H 141/76 H 10/10/19 18:46 36.7 C 18 Monitoring External Monitor Cat 1 Tocodynamometer Q2-4 min
[2019-10-10 22:51] LABS: Basophils # (auto) 0.02 K/uL (0-0.2); Basophils % (auto) 0.2 %; Eosinophils # (auto) 0.05 K/uL (0-0.5); Eosinophils % (auto) 0.5 %; Hematocrit (blood only) 33.4 % (37-47); Hemoglobin 11.1 g/dL (12.0-16.0); Lymphocytes # (auto) 1.96 K/uL (1.2-3.4); Lymphocytes % (auto) 19.7 %; Mean Corpuscular Hemoglobin 30.6 pg (25-34); Mean Corpuscular Hgb Conc 33.2 g/dL (32-36); Monocytes # (auto) 0.88 K/uL (0.11-0.59); Monocytes % (auto) 8.8 %; Neutrophils # (auto) 6.76 K/uL (1.4-6.5); Neutrophils % (auto) 67.8 %; Platelet Count 239 K/uL (130-400); RDW Coefficient of Variation 15.3 % (11.5-14.5); RDW Standard Deviation 51.5 fL (36.4-46.3); Red Blood Count 3.63 M/uL (4.2-5.4); White Blood Count 9.97 K/uL (4.8-10.8)
[2019-10-10] MEDS: LACTATED RINGER'S 1,000 ML IV PRN (23:42)
[2019-10-11] MEDS: LACTATED RINGER'S 1,000 ML IV PRN (04:17)
[2019-10-11 04:18] VITALS: TEMP 98.2
[2019-10-11 07:14] VITALS: BP 109/67; PULSE 95
--- NOTE | 2019-10-11 07:28 | Obstetrical Progress Note ---
Date of Service October 11, 2019 Subjective Patient slept somewhat overnight. She has had off-and-on contractions overnight. At this time, is feeling irregular ctx, not becka on toco, one palpable contraction. FHT Cat 1. Cervix exam unchanged, /-2. Scant vaginal spotting. No rupture of membranes. I discussed with patient that she is not in active labor at this time, given that she has not made cervical change overnight. However, given her irregular runs of contractions, I am concerned that she could move into active labor - and if she feels like contractions increase at all, if she develops heavy bleeding, or water breaks, she is to return immediately. She declined recommendation for steroids to improve lung development. Discharge to home, followup at scheduled visit in office tomorrow. Results & Data Vital Signs (Past 12 Hours) Vital Signs Temp Pulse Resp BP 10/11/19 07:13 95 H 109/67 10/11/19 04:18 36.8 C 18 10/11/19 04:16 118 H 117/71 10/11/19 02:28 114 H 103/59 L 10/11/19 02:20 36.9 C 18 10/10/19 22:42 36.9 C 94 H 18 121/67 PG Care Time/CCT Total # of Minutes Spent Total Time Spent with Patient: Total time spent is greater than 50% in coordination of care (as documented) at patient's floor/unit and/or counseling patient:
[2019-10-11] MEDS ORDERED: BETAMETH SOD PHOS/ACETATE IA 6 MG/ML IM SCH (22:30)
--- NOTE | 2019-10-18 23:54 | Discharge Summary ---
Date of Service October 18, 2019 Admission HPI Per Admitting Provider 29yo @ 36 11/25 presented to L&D with contractions - was feeling tightening in her abdomen every so often, and feeling more regular pains in her low back. + movement. No vaginal bleeding or leaking of fluid. complicated by h/o low transverse section - desires . Rh negative. She spent the night at L&D a few weeks ago for a similar scenario. She had declined steroids for lung maturity at that time, concerned that it may cause problems for the baby. Admission Exam (Per Admitting) Constitutional WD/WN, vitals as above Respiratory normal respiratory effort, lungs clear to auscultation no respiratory distress Cardiovascular Rate/Rhythm: regular rate and regular rhythm Gastrointestinal (Abdomen) Inspection/Auscultation: abdomen normal to inspection Percussion/Palpation: abdomen soft; abdomen nontender Skin no rashes, warm and dry Psychiatric A+Ox3, euthymic affect Hospital Course (1) contractions: Monitored overnight for labor, not in labor, discharged home. Cervix exam unchanged over 2 exams, 2 hours apart. However, I am concerned that she is still becka, lives over an hour away from the hospital, and has a prior hysterotomy scar on her uterus. I recommended to her that we keep her overnight for monitoring. If these contractions increase, will need to recheck cervix. Otherwise, plan to check again in the morning and determine whether she needs to stay at that point. I collected GBS swab tonight, will obtain CBC/blood bank hold. IV fluids overnight. I discussed steroids with patient - reviewed ACOG recommendations to give steroids up until 37w to improve lung maturity. Answered questions, discussed that I recommend that she get steroids. She and FOB will think about this. If contractions increase, will need to start PCN for GBS unknown prophylaxis. (2) Desires (vaginal after ) trial: Coding Level of Care Code None Diagnoses contractions O47.9 Desires (vaginal after ) trial O34.219
== END 2019-10-11 07:36 | disposition home or self-care (01) ==
LOC: OPB 18:39 → 4S1 18:39
DX: O60.02 Preterm labor without delivery, second trimester

== ENCOUNTER 2019-10-14 01:56 | Inpatient (IN) ==
[2019-10-14] MEDS ORDERED: OXYTOCIN 30 UNITS/500 ML BAG IV PRN ×3 (08:55→16:50)
[2019-10-14] MEDS ORDERED: BUTORPHANOL TARTRATE 1 MG/ML VIAL IV PRN (08:58)
--- NOTE | 2019-10-14 08:58 | History & Physical Report ---
Date of Service October 14, 2019 Assessment & Plan (1) Normal labor: 29yo F here at 37.0 weeks in active labor. - Trial for vaginal ; pt is a . - 4-5/100/-1 at this time. - Stadol given, pt will consider epidural. History of Present Illness Primary Care Provider: Jenna Cho DO [place] is a 29 yo F with prior history of C section for non-reassuring heart tones, was counseled on the risks and benefits of repeat C section and patient elects to attempt ; dating parameters 37.0 weeks by US; here overnight for painful contractions and now is 4/100/-1 with contractions every 3-4 minutes; Rh negative and received Rhogam at 28 weeks. Attended OB appointments with [facility]. Confirms movement, no vaginal bleeding or leakage of fluid. Undecided at this time regarding epidural. Labs (Serology 04/21/2019; CBC 10/14/2019): Blood type: O- Antibody screen: negative Hgb: 11.6 Hct: 36.0% WBC: 14.65 Plt: 255 Rubella status: immune VDLR/RPR: nonreactive Gonorrhea: negative Chlamydia: negative HIV: negative GBS: negative HbSAg: negative Glucose tolerance test x2: negative Allergies Allergy/AdvReac Type Severity Reaction Status Date / Time No Known Allergies Allergy Verified 10/10/19 19:05 Home Medications Home Medications Medication Instructions Recorded Confirmed Type PNV cmb#95-ferrous fumarate-FA 0 tab PO DAILY 06/21/19 10/10/19 History [ Multivitamins] ferrous sulfate [Iron (ferrous 325 mg PO DAILY 09/23/19 10/10/19 History sulfate)] Patient History Medical History screening for malformation using ultrasonics (Resolved) Endometriosis Generalized weakness (Acute) Need for rhogam due to Rh negative mother No pertinent past medical history Ovarian cyst Supervision of normal intrauterine in multigravida Syncope (Acute) Surgical History History of delivery, antepartum Hx of section (Resolved) Family History Other No pertinent family history Social History Preferred Language: Dutch Communication Ability: Effective Logistics 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 Required: No Beliefs That Will Affect Care: None marital status: Current Living Situation: Spouse Current Living Situation Comment: Pt lives in [place] with her and her daughter Other Information That Helps Us Care for You: No Feels Safe at Home: Yes Safety Concerns: Feels Safe At This Time Smoking Status: Never smoker Do You Dip or Chew Tobacco: No ; Second Hand Exposure: No ; Tobacco Cessation Education Requested by Patient: No Hx Alcohol Use: No Hx Substance Use: No Review of Systems Constitutional: denies fever, chills, sweats, headache Respiratory: denies SOB, difficulty breathing Cardiac: denies CP, chest palpitations, chest pressure Breast: denies breast pain : denies dysuria Physical Exam Physical Exam: General: patient is alert and oriented, in NAD Cardiac: +S1/S2, no murmurs rubs or gallops Respiratory: lungs CTA b/l, anteriorly and posteriorly, no wheezes rales or rhonchi, no increased work of breathing, symmetric chest rise, no respiratory distress Abdomen: gravid, fundal height is 37cm, + FHTs. Baby is presenting vertex. + palpable contractions q3-4 minutes; EFW 7-8 lbs Uterus: uterine fundus firm Lower Extremities: no LE edema or swelling, no deep calf pain, Aamir's sign negative b/l Genitourinary: Manual OB Exam: + cervical dilation 4 cm, + cervical effacement 100% and + station -1 OB Exam Monitor Tracing: + external FHT monitor used, + external uterine monitor used, + category I and + normal FHT variability Results & Data Vital Signs (Past 12 Hours) Vital Signs Temp Pulse Resp BP 10/14/19 07:13 82 113/65 10/14/19 05:30 85 123/63 10/14/19 02:24 87 119/66 10/14/19 02:17 36.6 C 18 Laboratory Results Laboratory Results - last 24 hr 10/14/19 10/14/19 09:19 09:19 WBC 14.65 H RBC 3.90 L Hgb 11.6 L Hct 36.0 L MCV 92.3 MCH 29.7 MCHC 32.2 RDW Std Deviation 51.5 H RDW Coeff of Pascale 15.5 H Plt Count 255 MPV 8.9 Blood Type Pending Antibody Screen Pending Medications Administered Current Medications Butorphanol Tartrate (Stadol) 1 mg IV Q2HWA PRN PRN Reason: Pain Stop: 11/13/19 08:57 Lactated Ringer's (Lr) 1,000 mls @ 125 mls/hr IV .Q8H PRN; Protocol PRN Reason: L&D Protocol Stop: 10/16/19 08:54 Oxytocin (Pitocin) 30 units in 500 mls @ 333.333 mls/hr IV .Q1H30M PRN; Protocol PRN Reason: Bleeding Control Stop: 11/13/19 08:54 Monitoring External Monitor HR 140s with food variability. Tocodynamometer contractions q3-4 minutes. Supervising Physician Co-Signing Physician Notes Resident Physician Supervision Note: I was present with Dr. Sanders during the history and exam. I discussed the case with the resident and agree with the findings and plan as documented in the note. Any exceptions or clarifications are listed here: candidate, desires CLAUDY Documented By: Ed Dawson Jr, MD, FACOG Coding Level of Care Code None Diagnoses Normal labor O80; Z37.9 Resident Activity Tracking Resident Involvement: Resident Care Provided Care Provided: OB Delivery
[2019-10-14 09:33] LABS: Hemoglobin 11.6 g/dL (12.0-16.0); Mean Corpuscular Hemoglobin 29.7 pg (25-34); Mean Corpuscular Volume 92.3 fL (80-100); Mean Platelet Volume 8.9 fL (7.4-10.4); Platelet Count 255 K/uL (130-400); RDW Coefficient of Variation 15.5 % (11.5-14.5); RDW Standard Deviation 51.5 fL (36.4-46.3); White Blood Count 14.65 K/uL (4.8-10.8)
[2019-10-14 09:35] LABS: Mean Corpuscular Hgb Conc 32.2 g/dL (32-36)
[2019-10-14] MEDS: LACTATED RINGER'S 1,000 ML IV PRN ×3 (09:57→15:56)
[2019-10-14] MEDS ORDERED: fentaNYL citrate 100 MCG/2 ML VIAL ONE (10:48)
[2019-10-14] MEDS ORDERED: ePHEDrine sulfate 50 MG/ML AMP ONE (10:48)
[2019-10-14] MEDS ORDERED: fentaNYL 2MCG/ML ROPIV 1.25MG/ML 100 ML BAG EPI ONE (10:49)
[2019-10-14] MEDS ORDERED: BUPIVACAINE 0.25% 30 ML VIAL ONE (10:49)
[2019-10-14] MEDS ORDERED: NALBUPHINE HCL INJ 10 MG/ML AMP IV PRN (10:52)
[2019-10-14] MEDS ORDERED: ONDANSETRON INJ 2 MG/ML 2 ML VIAL IV PRN ×2 (10:52→16:59)
[2019-10-14] MEDS ORDERED: ePHEDrine sulfate 50 MG/ML AMP IV PRN (10:52)
[2019-10-14] MEDS ORDERED: NALOXONE HCL 0.4 MG/1 ML VIAL/CARP IV PRN (10:52)
[2019-10-14] MEDS ORDERED: NALOXONE HCL 1 MG in SODIUM CHLORIDE 0.9% 1000ML 1,000 ML IV PRN (10:52)
[2019-10-14] MEDS ORDERED: fentaNYL 2MCG/ML ROPIV 1.25MG/ML 100 ML BAG EPI PRN (10:52)
[2019-10-14] MEDS ORDERED: DiphenhydrAMINE HCL 50 MG/ML VIAL IV PRN (10:52)
--- NOTE | 2019-10-14 10:57 | Anesthesiology Consultation ---
Date of Service October 14, 2019 Assessment & Plan Chart Review Chart Review: Patient NOT seen in Pre Admission Testing and Acceptable Risk for Labor Epidural Consults Requested none ASA ASA2 Proposed Anesthesia Anesthesia Type: Labor Epidural and CSE Risk / Benefits Reviewed With: PT / POA / Parent / Guardian, Accepts Plan and Informed Consent Obtained History Height/Weight Height: 5 ft 4 in Weight: 79.832 kg Allergies Allergy/AdvReac Type Severity Reaction Status Date / Time No Known Allergies Allergy Verified 10/10/19 19:05 Medications Home Medications Medication Instructions Recorded Confirmed Last Taken PNV cmb#[id number]-ferrous fumarate-FA 0 tab PO DAILY 06/21/19 10/10/19 10/10/19 08:00 [ Multivitamins] ferrous sulfate [Iron (ferrous 325 mg PO DAILY 09/23/19 10/10/19 10/10/19 08:00 sulfate)] Active Medications Generic Name Dose Route Start Last Admin Trade Name Freq PRN Reason Stop Dose Admin Lactated Ringer's 1,000 mls @ 125 mls/hr 10/14/19 08:55 10/14/19 09:58 Lr IV 10/16/19 08:54 999 mls/hr .Q8H PRN Infusion L&D Protocol Protocol NPO Date Last Intake of Fluids: 10/14/19 Time Last Intake of Fluids: 09:00 Date Last Intake of Solids: 10/13/19 Time Last Intake of Solids: 21:00 Past Medical History Medical History screening for malformation using ultrasonics (Resolved) Endometriosis Generalized weakness (Acute) Need for rhogam due to Rh negative mother No pertinent past medical history Ovarian cyst Supervision of normal intrauterine in multigravida Syncope (Acute) Exercise / Class Metabolic Activity II 4-5 Yardwork/Stairs/Walk up hill Past Family History Family History Other No pertinent family history Past Surgical History Surgical History History of delivery, antepartum Hx of section (Resolved) Past Anesthesia History No Hx of Anesthesia Complications and No Family Hx of Anesthesia Complications History of PONV No Hx of PONV and No Hx of Motion Sickness Social History Smoking Status: Never smoker Do You Dip or Chew Tobacco: No Hx Alcohol Use: No Hx Substance Use: No substance use type: does not use Review of Systems no chest pain or sob Physical Exam Vital Signs Last Vital Signs Temp 36.6 C 10/14/19 02:17 Pulse 98 H 10/14/19 10:56 Resp 18 10/14/19 02:17 BP 113/65 10/14/19 07:13 Pulse Ox 100 10/14/19 10:56 ENMT Mouth: no TMJ abnormality Thyromental Distance: > or= 3.5 Finger Breadths Mallampati Class: II Neck normal visual inspection Respiratory normal respiratory effort Auscultation: lungs clear to auscultation bilaterally Cardiovascular Rate/Rhythm: regular rate and regular rhythm Musculoskeletal Spine: normal cervical ROM Neurologic moves all extremities Psychiatric Orientation: alert and oriented x 3 Testing Laboratory Results 10/14/19 09:19 Blood Type O Negative 10/14/19 09:19 Antibody Screen NEGATIVE 10/14/19 09:19
--- NOTE | 2019-10-14 13:07 | Labor Progress Brief Note ---
Date of Service October 14, 2019 Subjective Reason For Note: Routine Evaluation comfortable now with epidural. candidate. aware i am taking over care. Assessment & Plan (1) Desires (vaginal after ) trial: comfortable, may need pitocin due to poor ctx pattern. will reposition as well due to variables. slight cervical change, can see how srom augments labor pattern. pt aware I am taking over care. she asks about use of pitocin with and explained that can be used for augmentation of labor. aware she will be closely observed. Physical Exam Constitutional: WD/WN, vitals as above Psychiatric: A+Ox3, euthymic affect Genitourinary: Manual OB Exam: + cervical dilation (5-6), + cervical effacement 80%, + station -2 and + amniotic fluid (SROM clear) clear OB Exam Monitor Tracing: + external FHT monitor used (150 mod variability, variable decels), + external uterine monitor used (q2), + category II and + normal FHT variability Results & Data Vital Signs (Past 12 Hours) Vital Signs Temp Pulse Resp BP Pulse Ox 10/14/19 12:54 117 H 129/73 10/14/19 12:51 130 H 98 10/14/19 12:46 113 H 98 10/14/19 12:41 113 H 98 10/14/19 12:39 114 H 131/74 10/14/19 12:36 115 H 98 10/14/19 12:31 113 H 97 10/14/19 12:26 106 H 97 10/14/19 12:24 112 H 129/77 10/14/19 12:21 113 H 97 10/14/19 12:16 107 H 98 10/14/19 12:11 102 H 97 10/14/19 12:09 108 H 117/72 10/14/19 12:08 98.2 F 20 10/14/19 12:07 103 H 94 10/14/19 12:06 102 H 98 10/14/19 12:01 98 H 98 10/14/19 11:56 103 H 99 10/14/19 11:54 89 113/61 10/14/19 11:51 101 H 99 10/14/19 11:46 101 H 99 10/14/19 11:41 102 H 99 10/14/19 11:38 106 H 123/59 L 10/14/19 11:36 112 H 98 10/14/19 11:33 104 H 121/57 L 10/14/19 11:31 112 H 98 10/14/19 11:29 109 H 136/63 10/14/19 11:26 105 H 99 10/14/19 11:22 105 H 115/60 10/14/19 11:21 105 H 98 10/14/19 11:20 106 H 118/63 10/14/19 11:18 100 H 130/60 10/14/19 11:17 110 H 153/75 H 10/14/19 11:16 108 H 100 10/14/19 11:12 111 H 137/61 10/14/19 11:11 115 H 100 10/14/19 11:06 132 H 100 10/14/19 11:03 115 H 138/85 10/14/19 10:56 98 H 100 10/14/19 07:13 82 113/65 10/14/19 05:30 85 123/63 10/14/19 02:24 87 119/66 10/14/19 02:17 97.9 F 18 Coding Level of Care Code None Diagnoses Desires (vaginal after ) trial O34.219
[2019-10-14] MEDS ORDERED: Nursing to Pharmacy Communication ONE (15:08)
[2019-10-14] MEDS ORDERED: HYDROCORTISONE ACETATE 25 MG SUPP PR PRN (16:50)
[2019-10-14] MEDS ORDERED: SUPERCREAM 0.870% 15 GM JAR EXT PRN (16:50)
[2019-10-14] MEDS ORDERED: DIPHTHERIA/TETANUS/PERTUSSIS 0.5 ML SYR/VIAL IM ONE (16:50)
[2019-10-14] MEDS ORDERED: OXYCODONE/ACETAMINOPHEN 5mg/325mg TAB PO PRN (16:50)
[2019-10-14] MEDS ORDERED: BENZOCAINE 20% AER SPR 82.5 GM CAN EXT PRN (16:50)
--- NOTE | 2019-10-14 16:50 | Delivery Summary ---
Vaginal Delivery Summary Date of Service October 14, 2019 The patient dilated to complete and pushed to deliver a viable female Apg ars 8 and 9 via over vaginal laceration with right labial laceration. Mouth and nose bulb suctioned at perineum. Shoulders and body delivered with ease and remainder of rapidly thereafter as patient continued with maternal expulsive efforts. was vigorous and crying at . Cord clamped at 30 seconds of life and infant to maternal abdomen where the cord was then doubly clamped and cut. Placenta delivered spontaneously and intact, three-vessel cord. Hemostasis achieved with dilute pitocin and uterine massage and drainage of the bladder for approximately 200 cc under sterile conditions. Lacerations repaired with 3-0 vicryl in usual fashion after 1% local lidocaine anesthesia. Cervix and sulci intact. Cord blood and cord gases. EBL 300 cc. Mother and baby stable in recovery.
[2019-10-14 16:55] LABS: Base Excess Cord Venous Blood -3.8 mEq/L (-7.7-1.9); Cord Venous Blood HCO3 21 mmol/L (18.4-26.8); Cord Venous Blood PCO2 40 mmHg (30.4-57.2); Cord Venous Blood PO2 26 mmHg (14.1-43.3); Cord Venous Blood pH 7.35 (7.20-7.44)
[2019-10-14 16:59] LABS: O2 Saturation Cord Venous Bld < 60.0 % (<68)
[2019-10-14] MEDS ORDERED: OXYTOCIN 20 UNITS in LACTATED RINGER'S 1,000 ML IV SCH (17:00)
--- NOTE | 2019-10-14 18:01 | Anesthesia Procedure Note ---
Date of Service October 14, 2019 Anesthesia Post Epidural Note Vital Signs Vital Signs: Temp Pulse Resp BP Pulse Ox 36.7 C 127 H 20 102/58 L 97 10/14/19 17:01 10/14/19 17:47 10/14/19 17:47 10/14/19 17:47 10/14/19 16:26 Pain Intensity Bilateral Back: Pain Intensity: 2 Notes Mental Status: alert / awake / arousable and participated in evaluation Patient Amnestic to Procedure: Yes Nausea / Vomiting: adequately controlled Pain: adequately controlled Airway Patency, RR, SpO2: stable & adequate BP & HR: stable & adequate Hydration State: stable & adequate Neuraxial Anesthesia: was administered and sensory block is resolving Anesthetic Complications: no major complications apparent and Pt Satisfied with anesthetic care Epidural: Removed without complications and With tip intact
[2019-10-14] MEDS: IBUPROFEN 600 MG TAB PO PRN ×2 (18:30→23:33)
[2019-10-14] MEDS ORDERED: DOCUSATE SODIUM 100 MG CAP ONE (19:52)
[2019-10-14] MEDS: DOCUSATE SODIUM 100 MG CAP PO SCH (19:55)
[2019-10-14] MEDS: ACETAMINOPHEN 325 MG TAB PO PRN (20:42)
[2019-10-15] MEDS: IBUPROFEN 600 MG TAB PO PRN ×5 (04:36→20:07)
[2019-10-15] MEDS: ACETAMINOPHEN 325 MG TAB PO PRN (04:49)
--- NOTE | 2019-10-15 07:01 | Obstetrical Progress Note ---
Date of Service <Dinahgraham Babcockangella - Last Filed: 10/15/19 07:01> October 15, 2019 Assessment & Plan <Dinah Acevedo - Last Filed: 10/15/19 07:01> (1) Encounter for care and examination after delivery: 29 yo F PPD #1 following delivery at 37.0weeks, doing well and without complaints this morning. - PPD #1 - Feels well, ambulating well, voiding well. - Will continue routine care. - Following d/c will have f/u in 6 weeks. - Blood type O-, Rubella immune. Subjective <Dinah BabcockDO angella - Last Filed: 10/15/19 07:01> Almita is a 29 yo female ; PPD # 1 following successful at 37.0weeks; doing well this AM; no abdominal cramping/pain; voiding well; tolerating meals overnight, able to ambulate some within the room. Some persistent spotting this morning but improved from yesterday. Is breast feeding and reports her baby has a good latch. Review of Systems Constitutional: denies fever, chills, sweats, headache Respiratory: denies SOB, difficulty breathing Cardiac: denies CP, chest palpitations, chest pressure Breast: denies breast pain : denies dysuria Physical Exam <Dinah Curtis, DO - Last Filed: 10/15/19 07:01> General: patient is alert and oriented, in NAD Cardiac: +S1/S2, no murmurs rubs or gallops Respiratory: lungs CTA b/l, anteriorly and posteriorly, no wheezes rales or rhonchi, no increased work of breathing, symmetric chest rise, no respiratory distress Abdomen: soft, NT, +bowel sounds Uterus: uterine fundus firm, palpable below the level of the umbilicus Lower Extremities: no LE edema or swelling, no deep calf pain, Aamir's sign negative b/l Results & Data <Dinah Acevedo DO - Last Filed: 10/15/19 07:01> Vital Signs (Past 12 Hours) Vital Signs Temp Pulse Pulse Pulse Resp BP BP 10/15/19 03:55 36.5 C 84 16 10/14/19 23:15 36.7 C 80 20 10/14/19 20:25 36.7 C 120 H 20 118/67 01/24/20 19:16 37.3 C 20 10/14/19 19:13 120 H 128/59 L 10/14/19 19:02 129 H 128/58 L BP Pulse Ox 10/15/19 03:55 91/55 L 97 10/14/19 23:15 110/67 98 10/14/19 20:25 98 10/14/19 19:16 10/14/19 19:13 10/14/19 19:02 Laboratory Results Laboratory Results - last 24 hr 10/14/19 10/14/19 10/14/19 09:19 09:19 16:16 WBC 14.65 H RBC 3.90 L Hgb 11.6 L Hct 36.0 L MCV 92.3 MCH 29.7 MCHC 32.2 RDW Std Deviation 51.5 H RDW Coeff of Pascale 15.5 H Plt Count 255 MPV 8.9 Cord ABG pH TNP Cord ABG pCO2 TNP Cord ABG pO2 TNP Cord ABG HCO3 TNP Cord ABG Base Excess TNP Cord ABG O2 Sat TNP Cord VBG pH Cord VBG pCO2 Cord VBG pO2 Cord VBG HCO3 Cord VBG Base Excess Cord VBG O2 Sat Barometric Pressure TNP Blood Gas Comments TNP Blood Type O Negative Antibody Screen NEGATIVE 10/14/19 16:16 WBC RBC Hgb Hct MCV MCH MCHC RDW Std Deviation RDW Coeff of Pascale Plt Count MPV Cord ABG pH Cord ABG pCO2 Cord ABG pO2 Cord ABG HCO3 Cord ABG Base Excess Cord ABG O2 Sat Cord VBG pH 7.35 Cord VBG pCO2 40 Cord VBG pO2 26 Cord VBG HCO3 21 Cord VBG Base Excess -3.8 Cord VBG O2 Sat < 60.0 Barometric Pressure 734.6 Blood Gas Comments BANUELOS Blood Type Antibody Screen Medications Administered Current Medications Acetaminophen (Tylenol) 650 mg PO Q6H PRN PRN Reason: Pain/GARCIA/Fever Stop: 11/13/19 16:49 Last Admin: 10/15/19 04:49 Dose: 650 mg Documented by: Benzocaine (Dermoplast Pain Relieving Strong) 1 appln EXT PRN PRN PRN Reason: Perineal Discomfort Stop: 11/13/19 16:49 Last Admin: 10/14/19 19:55 Dose: 82.5 appln Documented by: Cocaine HCl (Supercream 0.870%) 1 gm EXT BID PRN PRN Reason: Hemorrhoidal Inflammation Stop: 10/28/19 16:49 Docusate Sodium (Colace) 100 mg PO DAILY@, [facility] Stop: 11/13/19 20:59 Last Admin: 10/14/19 19:55 Dose: 100 mg Documented by: Hydrocortisone (Anusol Hc) 25 mg NC BID PRN PRN Reason: Hemorrhoidal Inflammation Stop: 11/13/19 16:49 Oxytocin (Pitocin) 30 units in 500 mls @ 333.333 mls/hr IV .Q1H30M PRN; Protocol PRN Reason: Bleeding Control Stop: 11/13/19 08:54 Oxytocin 20 units/ Lactated (Ringer's) 1,002 mls @ 0 mls/hr IV .Q0M SINDI Stop: 11/13/19 16:59 Last Infusion: 10/14/19 19:44 Dose: 0 mls/hr Documented by: Oxytocin (Pitocin) 30 units in 500 mls @ 333.333 mls/hr IV .Q1H30M PRN; Protocol PRN Reason: Bleeding Control Stop: 11/13/19 16:49 Ibuprofen (Motrin) 600 mg PO Q4H PRN PRN Reason: Pain/GARCIA/Cramping/Fever Stop: 11/13/19 16:49 Last Admin: 10/15/19 04:36 Dose: 600 mg Documented by: Ondansetron HCl (Zofran) 4 mg IV Q4H PRN PRN Reason: Nausea Stop: 11/13/19 16:58 Last Admin: 10/14/19 16:46 Dose: 4 mg Documented by: Oxycodone/Acetaminophen (Percocet 5mg/325mg) 1 tab PO Q4H PRN PRN Reason: Pain not relieved by... Stop: 10/28/19 16:49 Prenat Multivit/Luncheonette Manager/Iron/Folic Ac ( Vitamin) 1 tab PO DAILY@08 [facility] Stop: 11/14/19 07:59 <Karen Muhammad MD, FACOG - Last Filed: 10/15/19 07:27> Co-Signing Physician Notes Resident Physician Supervision Note: I was present with Dr. Acevedo during the history and exam. I discussed the case with the resident and agree with the findings and plan as documented in the note. Any exceptions or clarifications are listed here: doing well after . O neg and her daughter is RH neg, no rhogam indicated. ff at u, nt calves. routine care. Documented By: Karen Muhammad MD, FACOG Resident Activity Tracking <Dinah Acevedo, DO - Last Filed: 10/15/19 07:01> Resident Involvement: Resident Care Provided Care Provided: OB Delivery
[2019-10-15 07:14] LABS: Hematocrit (blood only) 30.9 % (37-47); Hemoglobin 9.9 g/dL (12.0-16.0)
[2019-10-15] MEDS: PRENATAL VITAMIN 1 TAB PO SCH (08:14)
[2019-10-15] MEDS: DOCUSATE SODIUM 100 MG CAP PO SCH (08:15)
[2019-10-15 16:36] VITALS: O2SAT 98
[2019-10-16] MEDS: DOCUSATE SODIUM 100 MG CAP PO SCH ×2 (07:59→08:47)
--- NOTE | 2019-10-16 08:35 | Obstetrical Progress Note ---
Date of Service October 16, 2019 Assessment & Plan (1) Encounter for care and examination after delivery: - doing well - desires d/c - instructions given - f/u in 6 weeks for pp check (2) Desires (vaginal after ) trial: Subjective Ambulation: ambulating normally Voiding: no voiding problems Feeding Type:: breast feeding Physical Exam Constitutional WD/WN, vitals as above Gastrointestinal (Abdomen) Fundus firm below umbilicus Musculoskeletal No deep calf tenderness Results & Data Vital Signs (Past 12 Hours) Vital Signs Temp Pulse Resp BP 10/16/19 00:01 97.9 F 80 18 104/58 L
[2019-10-16] MEDS: PRENATAL VITAMIN 1 TAB PO SCH (08:47)
[2019-10-16] MEDS: IBUPROFEN 600 MG TAB PO PRN ×3 (08:47→16:46)
[2019-10-16 16:02] VITALS: BP 124/72; PULSE 88; TEMP 98.4
== END 2019-10-16 16:57 | disposition home or self-care (01) | DRG 807 ==
LOC: OPB 01:56 → 4S1 01:57 → 4S2 19:30